=== PATIENT | male | born 1950 | race Caucasian/White ===

== ENCOUNTER 2023-08-03 06:34 | Day surgery (SDC) | payer OTHER, SELFPAY ==
[2023-07-28 11:51] VITALS: BMI 24.4
[2023-08-03] VITALS (12 sets, daily range): BP systolic 111–177; BP diastolic 58–95; PULSE 61–80; RESP 12–17; TEMP 36.1–36.7; O2SAT 97–100; BMI 24.3
--- NOTE | 2023-08-03 06:33 | DI.RAD.S_ITS ---
PROCEDURE: XR HIP W PEL IF DONE RT 2V INDICATIONS: right DANNY, anterior TECHNIQUE: 1 view(s) of the hip acquired. COMPARISON: [facility], JORDYN, XR HIP W PEL IF DONE RT 2V, 08/03/2023, 10:46. FINDINGS: Bones: Patient is status post right hip arthroplasty, with hardware components in expected positions. The hip joint appears congruent. The visualized bony structures appear intact. Soft tissues: Overlying postoperative changes are noted. No suspicious soft tissue densities. IMPRESSION: Intraoperative visualization of right hip arthroplasty. Dictated by: Shruthi Thrasher M.D. on 08/03/2023 at 12:22 Approved by: Shruthi Thrasher M.D. on 08/03/2023 at 12:22
[2023-08-03] MEDS: LACTATED RINGERS 1,000 ML 42 ML IV ×2 (06:56→09:40)
[2023-08-03] MEDS: VANCOMYCIN 1,000 MG/200 ML PIGGYBACK 200 MG IV (06:57)
[2023-08-03] MEDS: ACETAMINOPHEN 325 MG TABLET 975 MG PO (07:10)
--- NOTE | 2023-08-03 07:19 | SUR.OPER ---
Supine on padded Julian table with bilateral legs secured in padded positioning boots and suspended in positioning spars, operative leg in traction per surgeon. Head on one pillow. Arm on non-operative side secured on padded armboard <90 degrees abduction. Arm on operative side padded and resting across chest then secured with tape over sheet. Padded perineal post in place per surgeon.
--- NOTE | 2023-08-03 07:37 | PM.PREOP ---
Pre-operative Note Interval Note History & Physical reviewed/Exam performed by Physician: Yes Changes to H&P: No
--- NOTE | 2023-08-03 07:38 | PM.OP.1 ---
Operative Date/Time/Diagnoses Date of procedure: 08/03/23 Time of procedure: 08:00 Pre-op diagnosis: right hip OA Post-op diagnosis: same Procedure & Clinicians Procedure: Right total hip arthroplasty anterior approach Same procedure as scheduled: Yes Indications: The patient has had progressively worsening right hip pain with radiographic changes consistent with arthritis. Non-operative management has failed and the patient has requested total hip replacement. The risks, benefits and alternatives to surgery were discussed with the patient prior to proceeding. Risks discussed included, but were not limited to, failure to relieve pain, leg length discrepancy, dislocation, stiffness, infection, nerve damage, deep venous thrombosis, pulmonary embolism, stroke, coma, heart attack, permanent paralysis and , as well as the potential need for eventual revision of the prosthetic. Surgeon: Jannette Tong Collar Pointer: Jan Burgos Anesthesia Type: General Operative Notes Findings: Severe right hip osteoarthritis, adequate bone, adequate stability Closure Type: primary Specimen(s): none sent Prosthetic devices, grafts, tissues, transplants, or devices: Tong and nephew R3 size 54, neutral poly liner, one 6.5 mm screw, polar stem size 4 with collar, 36+ 0 Oxinium head Estimated Blood Loss (mL): 250 Blood products transfused: none Procedure in detail: The patient was brought to the operating room. Patient was carefully positioned in the supine position. Time-out was performed and antibiotics were given. Anesthesia was induced. He was positioned in the on the table in order to allow hyperextension of the hip. The right lower extremity was prepped and draped in a standard sterile fashion. An anterior right hip incision was made 1 fingerbreadth lateral to the anterior superior iliac spine and extended distally towards the greater trochanter. Dissection was carried out through skin and subcutaneous tissues. Superficial hemostasis was achieved. The fascia over the tensor fascia aime was defined and incised with a knife. Two Allis clamps were used to grasp the fascia. Tensor fascia aime was retracted laterally. A gelpi retractor was placed. Dissection was carried out down along the neck. The circumflex vessels were carefully identified and cauterized with the Aqua Mantis. A PA was used during the procedure and was essential for retraction and safe implantation of the components as well as assisting with establishing adequate hemostasis. There was good visualization of the femoral neck. A Cobra was placed superior to the neck and the gluteus fibers were carefully stripped from that superior aspect of the capsule. A 2nd retractor was placed along the inferior aspect of the neck. The rectus insertion along the capsule was partially released. A 3rd retractor that was then gently placed over the rim of the acetabulum under the rectus. Capsule was carefully incised and released from the intertrochanteric line circumferentially superior to the mid sagittal line and inferiorly to the mid sagittal line until the lesser trochanter was palpable. A tag stitch was placed both in the superior and inferior limb of the capsular insertion. Along the acetabulum capsule was also released up to the mid sagittal 12:00 position. A portion of the labrum was resected. A saw was used to perform an osteotomy at the level of the intertrochanteric line and the junction of the superior femoral neck leaving approximately 1 finger breath of residual inferior neck above the lesser trochanter. A 2nd cut was made along the femoral neck at the base of the head and a napkin ring of neck was removed. Corkscrew was placed in the femoral head and the head was removed without difficulty. Retractors were then repositioned around the acetabulum. Residual labrum was resected and additional osteophytes were removed. A reamer that was 4 mm below the templated size was placed by hand in the acetabulum and it was reamed to centralize the acetabulum. It was then reamed up to 2 under the templated size and fluoroscopy was brought in to confirm the position of the reaming and depth of reaming. I reamed 1 under the anticipated size. A trial cup was placed and noted that it was appropriately sized and fluoroscopy confirmed position and depth. The component was open and inserted without difficulty fluoroscopic imaging was used to confirm that the cup had been adequately seated and was well positioned. It was further stabilized with a single screw. Neutral poly liner was placed. The cup was tested and noted to be stable. Attention was then directed to the femur. The femur was gently hyperextended additional capsular release was performed as needed in order to allow adequate visualization of the proximal femur with elevation of the femur. Patient was placed in a hyperextended slightly adducted position with maximum external rotation. Box osteotome was used to check for any residual neck as well as sclerotic bone along the trochanter. [place] pepper was placed in the femur. Additional broaching was performed. Canal finder was used to determine the alignment of the canal and position. Size 1 broach was placed. The canal was then appropriately broached up to the templated size as long as there was adequate stability of the broach and serial advancement of the broach without excessive impingement. Specific attention was directed at avoiding varus attempting to direct the distal aspect of the broach more anteriorly and avoiding excessive anteversion. Trial reduction showed acceptable range of motion, good stability, no posterior impingement, rastafarian of leg length and appropriate lateral shuck. I also hyperflexed the hip and checked that there was no impingement anteriorly and there was good stability with flexion, adduction and internal rotation. Marcaine and Exparel were injected. The stem was placed without difficulty. Repeat trial reduction and x-ray showed acceptable overall position, length, and no evidence of the femoral fracture. Final head was placed. Wound was meticulously irrigated with normal saline. The hip was reduced and additional Exparel and Marcaine were injected. The capsule was closed with interrupted nonabsorbable sutures. The fascia of the tensor was closed with interrupted and running Vicryl. No drain was placed. Any tensor fascia aime muscle that appeared to be contused or injured which was a minimal amount was carefully resected. Capsule around the tensor was injected with Exparel and Marcaine. The skin was closed with barbed stitches for the subcutaneous tissue and skin. We also used surgical glue. The wound was dressed sterilely. Brief Betadine soak was also used and was meticulously irrigated with normal saline. Patient was transferred to recovery room in satisfactory condition. Complications: none Post-operative Condition: stable Disposition: Acute Care Plan for aftercare: The patient will be maintained on a standard total hip replacement protocol with weight bearing as tolerated and anterior hip precautions. The patient will receive Coumadin and sequential compression devices for DVT prophylaxis. The patient will be discharged home when safe for the home environment.
[2023-08-03] MEDS: CEFAZOLIN 2 GM/100 ML PREMIX 100 ML IV ×3 (08:05→23:46)
[2023-08-03] MEDS: BUPIVACAINE 0.25% (PF) 60 ML, EPINEPHrine 0.3 MG INJ (08:40)
--- NOTE | 2023-08-03 09:06 | PM.AN.REGBLK ---
Regional Block Pre-procedure Labs: INR in pre-op this AM 1.1 Medications: Current Medications Generic Name Dose Route Start Last Admin Trade Name Pedroq PRN Reason Stop Dose Admin Acetaminophen 975 mg 07/29/23 14:08 Acetaminophen 325 Mg Tablet PO NOW PRN Pain, Moderate (4-6) Lactated Ringer's 1,000 mls @ 42 mls/hr 07/29/23 14:15 08/03/23 06:56 Lactated Ringers IV 42 mls/hr CONT LUIS Administration Lactated Ringer's 1,000 mls @ 42 mls/hr 08/03/23 06:45 08/03/23 07:11 Lactated Ringers IV Not Given CONT LUIS Pt held warfarin x 5 days. Lovenox 30mg SQ yesterday at 1800. Allergies: Allergies Allergy/AdvReac Type Severity Reaction Status Date / Time No Known Drug Allergies Allergy Verified 08/03/23 06:49 Procedure Insertion date: 08/03/23 Insertion time: 08:10 Prep/Local: 1% lidocaine (2CC) Interspace: L3-L4 Patient position: sitting
[2023-08-03] MEDS: BUPIVACAINE LIPOSOME 266 MG/20 ML VIAL INJ (10:21)
--- NOTE | 2023-08-03 11:00 | DI.RAD.S_ITS ---
PROCEDURE: XR HIP W PEL IF DONE RT 2V INDICATIONS: RIGHT ANTERIOR HIP POST OP TECHNIQUE: AP pelvis and lateral view of the right hip acquired. COMPARISON: [facility], JORDYN, XR HIP W PEL IF DONE RT 2V, 08/03/2023, 9:24. FINDINGS: Bones: Patient is status post right hip arthroplasty, with hardware components in expected positions. The hip joint appears congruent. The visualized bony structures appear intact. Soft tissues: Overlying postoperative changes are noted. No suspicious soft tissue densities. IMPRESSION: Postop changes from right total hip arthroplasty with anatomic right hip alignment. Dictated by: Joey May M.D. on 08/03/2023 at 13:34 Approved by: Joey May M.D. on 08/03/2023 at 13:35
[2023-08-03] MEDS: ACETAMINOPHEN 325 MG TABLET 650 MG PO ×3 (11:45→23:46)
[2023-08-03] MEDS: LACTATED RINGERS 1,000 ML 100 ML IV (11:47)
[2023-08-03] MEDS: OXYCODONE IR 10 MG TABLET PO ×2 (16:02→19:48)
--- NOTE | 2023-08-03 16:06 | OT.IP.EVAL ---
Current Diagnoses Unilateral primary osteoarthritis, right hip (08/03/23) Surgery Performed Operation Date: 08/03/23 07:45 Actual Procedures p Total Hip Arthroplasty/Anterior Approach(Right) - Jannette Tong MD Past Medical History (Last Updated 07/28/23 @ 12:08 by Naeem Valles, ANABELA) Chronic anticoagulation DJD (degenerative joint disease) History of arthritis History of atrial fibrillation History of depression History of DVT of lower extremity (~02/2007) History of factor V Leiden mutation History of osteoarthritis History of spinal stenosis HTN (hypertension) Hyperlipidemia Surgical History (Last Updated 07/28/23 @ 12:13 by Naeem Valles RN) H/O arthroscopy of shoulder History of arthroscopy of knee History of hernia repair Hx of colostomy Hx of surgical procedure Occupational Therapy Inpatient Evaluation/Re-Eval M1 PT/OT-IP Prior Functional Status Start: 08/03/23 16:08 Freq: NEEDED Status: Active Protocol: Document 08/03/23 15:35 [facility] (Rec: 08/03/23 16:44 [facility] [id number]) Medical Review Prior Functional Status Medical History Reviewed Yes Communication Independent, pt states has difficulty getting words out when tired. Mobility and Gait Pt did not use a device and able to go to the gym and work out for 2 hours. Activities of Daily Living and IADL's Independent. Social History Household Members spouse Living Arrangements House Number of Floors (Floors) Two Floors Number of Stairs To Enter/Railing? 3steps with no rails Home Environment High Toilet,Walk in Shower Home Equipment Front Wheel Walker,Straight Cane,Hand Held Shower,Grab Bars Near Toilet,Grab Bars In Shower Additional Social History Comment Pt has a built in seat for the shower and questionable if the walker is able to fit into the shower. M2 OT-IP Current Condition Start: 08/03/23 16:08 Freq: Status: Active Protocol: Document 08/03/23 15:35 [facility] (Rec: 08/03/23 16:44 [facility] [id number]) Occupational Therapy Current Condition Current Condition Evaluation Date 08/03/23 Treatment Diagnosis S/p RTHA s/p Anterior approach Diagnosis Onset Date 08/03/23 Post Operative Precautions Anterior Hip Precautions No Hip Extension,No Hip External Rotation M3 OT- IP Subjective and Pain Start: 08/03/23 16:08 Freq: Status: Active Protocol: Document 08/03/23 15:35 [facility] (Rec: 08/03/23 16:44 [facility] [id number]) OT- Subjective Occupational Therapy Visit Type Type Initial Evaluation Visit Start Time 13:40 Visit Stop Time 16:06 Total Visit Minutes 55 Notes Pt seen from [id number] and [id number]. Occupational Therapy Visit Comments Patient Comments Pt agreed to get up and initially seen to go over information as pt not able to move his RLE at the time yet after surgery. Patient/Caregiver Goals To go home. OT Pain Assessment Pain When Pain Assessed At Rest Pain Present Pain Present Pain Reported Location Right Hip Intensity 5 Scale Used Numeric (0 - 10) M4 OT- IP ADL's Start: 08/03/23 16:08 Freq: Status: Active Protocol: Document 08/03/23 15:35 [facility] (Rec: 08/03/23 16:44 [facility] [id number]) OT [id number] Comments OT Self-Feeding Comments Not at meal time. OT ADL-Grooming Comments OT Grooming Comments Not performed. OT ADL-Oral Care Comments Oral Care Comments NOt performed. OT ADL-Dressing General Eval Lower Body Dressing Ability Maximum Assistance Areas Needing Assistance Underpants/Brief,Socks Comments OT Dressing Comments Educated to carlito his RLE first and take out last. 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 Pt states his to assist. Emphasized pt not to externally rotate his RLE out for any dressing needs and better to have assist to prop his right foot on a stool to get dressed and use of LB dressing equipment as needed. OT ADL-Toileting General Evaluation Toileting Ability Standby Assistance Comments OT Toileting Comments Pt able to stand with CGA to FWW while able to use the urinal. Pt gets up 7-8 times to use the bathroom due to prostate issues. OT ADL-Bathing Comments OT Bathing Comments Not at this time. Pt's to see if able to get the FWW in the walk in shower. M5 OT- IP IADL's Start: 08/03/23 16:08 Freq: Status: Active Protocol: Document 08/03/23 15:35 [facility] (Rec: 08/03/23 16:44 [facility] [id number]) OT-Instrumental Activities of Daily Living Home Safety Awareness Home Safety Comments Pt a little groggy and will have his to assist him at home. Pt's also needing education for pt's needs and precautions. Meal Preparation Meal Preparation Caregiver Provides Assist Equip Maint Eng Equip Maint Eng Caregiver Provides Assist M6 OT- IP Functional Cognition Start: 08/03/23 16:08 Freq: Status: Active Protocol: Document 08/03/23 15:35 [facility] (Rec: 08/03/23 16:44 [facility] [id number]) Cognitive Factors Limiting Selfcare Function Cognitive Ability Level of Alertness Drowsy Patient Orientation Name,Place,Situation Attention Span Ability Capable of Focused Attention, Capable of Sustained Attention Ability to Follow Commands Able to Follow One Step Commands with Increased Time, Able to Follow One Step Commands with Repetition Safety Awareness Decreased Ability to Apply Precautions Cognitive Comments Cognitive Assessment Comments Pt a little groggy and forgetful and needing reminders to incorporate his precautions during mobility and ADL needs. Pt's feels that pt is at his baseline for cognitive needs, continue to assess. OT- Vision and Hearing OT- Vision Assessment Visual Acuity WFL Vision Assessment Comments Pt states his left eye is watery but states does so at home at times. M7 OT- IP Mobility and Balance Start: 08/03/23 16:08 Freq: Status: Active Protocol: Document 08/03/23 15:35 [facility] (Rec: 08/03/23 16:44 [facility] [id number]) OT- Bed Mobility Assessment Supine to Sit Supine to Sit Assist Standby Assistance Scooting Scooting to Edge of Bed Standby Assistance OT-Transfer Assessment Sit to and From Stand Sit to and from Stand Contact Guard Assistance Comments Mobility Comments SBA and able to keep his legs together while getting to the edge of the bed. Pt needing vc to push up from the bed to stand to the FWW. CGA for balance. Pt able to take a few steps with the FWW but needing cues to follow his hip precautions. OT- Balance Assessment Sitting Balance and Reactions Static Sitting Balance Ability Good Dynamic Sitting Balance Ability Good Standing Balance and Reactions Static Standing Balance Ability Fair Dynamic Standing Balance Ability Fair M9 OT- IP Assessment and Plan Start: 08/03/23 16:08 Freq: Status: Active Protocol: Document 08/03/23 15:35 [facility] (Rec: 08/03/23 16:44 [facility] [id number]) OT Summary Assessment and Plan Potential Rehabilitation Potential Good Analytic Complexity at Evaluation Low Summary OT Impairments Pain,Balance,Functional Mobility,Dressing,Toileting, Bathing,Toilet Transfers, Shower Transfers Progress Towards Goals Progressing Toward Goals Assessment Summary Pt low complexity and main barriers are pain, needing cues to follow and incorporate his hip precautions, and has 3 steps with no rail at home. Pt has a supportive , however she would benefit from more training and education regarding his hip precautions for ADl and mobility needs. Pt to go home with assist when medically stable. Goals Grooming Goal Independent Dressing Goal Minimal Assistance Toileting Goal Independent Bathing Goal Minimal Assistance Toilet Transfer Goal Independent Shower Transfer Goal Standby Assistance Days to Meet Goals 5 Frequency of Treatment Frequency Of Treatment Once a Day Treatment Plan OT Treatment Plan ADL Training,Functional Mobility,Patient/Family Education,Discharge Planning Discharge Recommendations OT Discharge Recommendations Home with Assistance Transportation Needs at Discharge Private Vehicle
[2023-08-03] MEDS: WARFARIN 5 MG TABLET PO (17:15)
--- NOTE | 2023-08-03 18:57 | PC.NURSE ---
Pt arrived from PACU this a.m. prior to lunch VSS, afebrile on RA. Initially reports heavy sensation to RLE, tightness to muscles in R hip 04/07. RLE weak initially after spinal block and OT at bedside returns later to discuss hip precautions and assess patient. Aquacel c/d/i. He tolerates meals well. LR at 100ml/hr. at bedside supportive. This evening at 1830 after MD at bedside encouraging pt to sit in chair. Pt gets up with RN to go to the BR and has a hypotensive episode. He is assisted back to bed, and SBP returns to 116/95, and patient recovers back to baseline. MD notified, continuous monitoring.
[2023-08-03] MEDS: DOCUSATE 100 MG CAPSULE PO (20:06)
[2023-08-03] MEDS: ATORVASTATIN 20 MG TABLET 10 MG PO (20:06)
[2023-08-04 00:05] VITALS: BP 121/63; PULSE 77; RESP 16; TEMP 36.3; O2SAT 99
[2023-08-04] MEDS: LACTATED RINGERS 1,000 ML 100 ML IV ×2 (00:59→10:46)
--- NOTE | 2023-08-04 02:16 | PC.NURSE ---
Patient is alert and oriented. Breath sounds CTA with RA sat of 100%; placed on continuous oximetry per MD order. HRR; did have episode prior to shift change where he became hypotensive when up to bathroom but at time of assessment BP was 111/58. Denies nausea. BT hypoactive and denies having passed flatus as yet. Is voiding per urinal and denies dysuria. Is able to move himself in bed. Due to hypotensive episode earlier will utilize walker + 2 assists when getting out of bed. Aquacel dressing to right anterior hip is CDI. Has good CMS except is unable to lift his right leg off the bed but is bending at the knee/hip. Is wearing bilateral calf SCD's. Reported no pain at rest but 10/10 pain with movement so was medicated with oxycodone at 1948 in addition to scheduled tylenol and has denied pain since that time. Fall risk score is high and bed alarm is activated.
[2023-08-04 04:25] VITALS: BP 125/65; PULSE 79; RESP 16; TEMP 36.5; O2SAT 99
[2023-08-04] MEDS: OXYCODONE IR 10 MG TABLET PO (05:55)
[2023-08-04] MEDS: ACETAMINOPHEN 325 MG TABLET 650 MG PO ×2 (05:55→12:34)
[2023-08-04 06:38] LABS: Prothrombin Time 11.9 SECONDS (10.1-12.7)
[2023-08-04 06:40] LABS: Hematocrit 34.4 % (41-53); Hemoglobin 11.4 g/dL (13.5-17.5)
[2023-08-04 08:00] VITALS: BP 142/75; PULSE 82; RESP 16; TEMP 35.9; O2SAT 98
--- NOTE | 2023-08-04 08:17 | PM.DS.1 ---
History of Present Illness History of Present Illness Date Patient Seen: 08/04/23 Time Patient Seen: 08:00 Chief complaint: R DANNY anterior Narrative: Patient is sitting up comfortably at the edge of bed eating breakfast this morning. He states everything is going well. Has little pain, well controlled with medication. He notes that PT went well yesterday and he is eager to go home. Denies chest pain, shortness of breath. Discharge Providers Provider Discharge Date: 08/04/23 Consults: 08/03/23 06:33 Consult to Anesthesiology Routine Comment: Consulting Provider: Anesthesiologist Reason for consultation: Regional block for post operative pain control 08/03/23 11:38 Consult to Discharge Planning Routine Comment: Consult to Occupational Therapy Evaluate & Treat Comment: Physician Instructions: Evaluate and treat Consult to Physical Therapy Evaluate & Treat Comment: Physician Instructions: post op DANNY protocol Discharge provider: Teresa Concepcion PA-C Summary Hospital Course Discharge Diagnosis: s/p R DANNY anterior Hospital Course: Operative Date/Time/Diagnoses Date of procedure: 08/03/23 Time of procedure: 08:00 Pre-op diagnosis: right hip OA Post-op diagnosis: same Procedure & Clinicians Procedure: Right total hip arthroplasty anterior approach Same procedure as scheduled: Yes Indications: The patient has had progressively worsening right hip pain with radiographic changes consistent with arthritis. Non-operative management has failed and the patient has requested total hip replacement. The risks, benefits and alternatives to surgery were discussed with the patient prior to proceeding. Risks discussed included, but were not limited to, failure to relieve pain, leg length discrepancy, dislocation, stiffness, infection, nerve damage, deep venous thrombosis, pulmonary embolism, stroke, coma, heart attack, permanent paralysis and , as well as the potential need for eventual revision of the prosthetic. Surgeon: Jannette Tong Business Development Professional: Jan Burgos Anesthesia Type: General Operative Notes Findings: Severe right hip osteoarthritis, adequate bone, adequate stability Closure Type: primary Specimen(s): none sent Prosthetic devices, grafts, tissues, transplants, or devices: Tong and nephew R3 size 54, neutral poly liner, one 6.5 mm screw, polar stem size 4 with collar, 36+ 0 Oxinium head Estimated Blood Loss (mL): 250 Blood products transfused: none Status at Discharge Cognitive/behavioral status at discharge: oriented Functional status at discharge: uses cane/walker Overall status at discharge: patient is progressing back to baseline Exam Vital Signs (past 8 hours): - 08/04/23 04:25 Temperature 97.7 F Pulse Rate 79 Respiratory Rate 16 Blood Pressure 125/65 Pulse Oximetry 99 Oxygen Flow Rate 0 Oxygen Delivery Method Room Air Oxygen Flow Rate 0 Narrative Exam Narrative: Pleasant 72 year old male. Awake, alert, and oriented. Right anterior hip bandage CDI. Strength and sensation intact to bilateral lower extremities. Objective Labs 08/04/23 06:05 Labs: Laboratory Results - last 24 hr 08/04/23 08/04/23 06:05 06:05 Hgb 11.4 L Hct 34.4 L PT 11.9 INR 1.0 PFSH Medical History (Updated 07/28/23 @ 12:08 by Naeem Valles RN) Chronic anticoagulation DJD (degenerative joint disease) History of arthritis History of atrial fibrillation History of depression History of DVT of lower extremity (~02/2007) History of factor V Leiden mutation History of osteoarthritis History of spinal stenosis HTN (hypertension) Hyperlipidemia Surgical History (Updated 07/28/23 @ 12:13 by Naeem Valles RN) H/O arthroscopy of shoulder History of arthroscopy of knee History of hernia repair Hx of colostomy Hx of surgical procedure Social History household members: spouse Smoking Status: Never smoker alcohol intake: never Discharge Assessment & Plan Assessment and Plan Assessment: Patient is progressing well following right anterior total hip arthroplasty. Plan of Treatment: Continue outpatient PT. Multimodal pain medication as prescribed. Ice to hip as needed. Continue warfarin. Follow up with orthopedics in 2 weeks. Discharge Plan Discharge Plan Patient Disposition: Home Discharge orders & Medications Discharge Orders: Discharge (Order); Ordered 08/04/23 Ordered By: Teresa Concepcion Prescriptions: New acetaminophen 325 mg Tablet 650 mg PO Q6H Qty: 30 0RF Continued atorvastatin 10 mg tablet 10 mg PO DAILY warfarin 5 mg Tablet 5 mg PO DAILY lisinopril-hydrochlorothiazide 10-12.5 mg tablet 1 tab PO DAILY oxycodone 5 mg Tablet 5 mg PO Q4H PRN (Reason: pain) Patient Comments: post op medication duloxetine 60 mg capsule,delayed release(DR/EC) 60 mg PO DAILY enoxaparin 30 mg/0.3 mL syringe 30 mg SUBCUT BID Follow up/Referrals: Jannette Tong MD [Physician] - As previously scheduled (Follow up w/ Toshia Concepcion PA-C, on 08/17/2023 @ 3:30 pm at [facility] office in [place].) Diet/Activity/Treatments Diet: Diet as Tolerated Activity: Weightbearing as tolerated to right leg. Anterior hip precautions. Cold/Heat Therapy: Ice to hip as needed for pain. Other treatments: Patient will be restarted on warfarin 08/03/2023 and will start his 1st Lovenox dose tomorrow August 04, 2023 evening. He will take his 2 doses of Lovenox on August 05, 2023 have his INR checked it should be therapeutic bilateral time. Skin/Wound/Dressing Care Report to your healthcare provider any signs of infection, such as:: chills, fever, night sweats, unusual drainage and unusual redness Dressing: May shower. Leave Aquacel dressing in place until follow up in office. No bathing or otherwise soaking incision. Call the office if the dressing becomes saturated inside. Visit Report/Discharge Packet Instructions: DI for Hip Replacement Stand Alone Forms: Patient Portal/API, Surgery Discharge Discharge Data Attending Provider: Jannette Tong
--- NOTE | 2023-08-04 09:40 | PT.IIE ---
Current Diagnoses Unilateral primary osteoarthritis, right hip (08/03/23) Surgery Performed Operation Date: 08/03/23 07:45 Actual Procedures p Total Hip Arthroplasty/Anterior Approach(Right) - Jannette Tong MD Surgical History (Last Updated 07/28/23 @ 12:13 by Naeem Valles, RN) H/O arthroscopy of shoulder History of arthroscopy of knee History of hernia repair Hx of colostomy Hx of surgical procedure Medical History (Last Updated 07/28/23 @ 12:08 by Naeem Valles RN) Chronic anticoagulation DJD (degenerative joint disease) History of arthritis History of atrial fibrillation History of depression History of DVT of lower extremity (~02/2007) History of factor V Leiden mutation History of osteoarthritis History of spinal stenosis HTN (hypertension) Hyperlipidemia Physical Therapy Inpatient Evaluation/Re-Eval M1 PT/OT-IP Prior Functional Status Start: 08/03/23 16:08 Freq: NEEDED Status: Active Protocol: Document 08/04/23 09:40 DLM (Rec: 08/04/23 12:47 DL [id number]) Medical Review Prior Functional Status Medical History Reviewed Yes Diet/Fluid Consistency Regular Communication Independent, pt states has difficulty getting words out when tired. Mobility and Gait Pt did not use a device and able to go to the gym and work out for 2 hours. He is active in the community. He likes to play pickle ball. Activities of Daily Living and IADL's Independent. Social History Household Members spouse Living Arrangements House Number of Floors (Floors) Two Floors Number of Stairs To Enter/Railing? 3 without rail Home Environment High Toilet,Walk in Shower, Built-In Shower Seat Home Equipment Front Wheel Walker,Straight Cane,Hand Held Shower,Grab Bars Near Toilet,Grab Bars In Shower Employment Status Retired Additional Social History Comment pt plans to stay on main level of house M2 PT-IP Current Condition Start: 08/04/23 11:49 Freq: NEEDED Status: Active Protocol: Document 08/04/23 09:40 DLM (Rec: 08/04/23 12:47 DLM [id number]) Physical Therapy Current Condition Current Condition Evaluation Date 08/04/23 Treatment Diagnosis right anterior DANNY, impaired gait Onset Date 08/03/23 M3 PT-IP Subjective Start: 08/04/23 11:49 Freq: NEEDED Status: Active Protocol: Document 08/04/23 09:40 DLM (Rec: 08/04/23 12:47 DLM [id number]) Subjective Physical Therapy Visit Type Type Initial Evaluation Visit Start Time 08:55 Visit Stop Time 09:40 Total Visit Minutes 45 Number of CHEMICAL UNIT OPERATOR Visits 0 Physical Therapy Visit Comments Patient Comments He reports he got really light -headed when up with nursing and they had to help him to prevent a fall. He recalls getting hot and sweaty while light-headed. Patient Goals discharge home Therapy Pain Assessment Pain When Pain Assessed During Mobility Pain Present Pain Present Pain Reported Location Right Hip Intensity 3 Scale Used Numeric (0 - 10) Description Aching,Tender,With Movement Pain Behaviors Guarding Pain Management Techniques Re-positioning,Timing of Activity with Medications M4 PT-IP Mobility and Gait Start: 08/04/23 11:49 Freq: NEEDED Status: Active Protocol: Document 08/04/23 09:40 DL (Rec: 08/04/23 12:47 DL [id number]) PT-Bed Mobility Assessment Supine to Sit Supine to Sit Minimal Assistance Sit to Supine Sit to Supine Minimal Assistance Scooting Scooting to Edge of Bed Independent Scooting Up and Down in Bed Independent PT-Transfer Assessment Sit to and From Stand Sit to and from Stand Standby Assistance,Use of Upper Extremities Equipment Transfer Assistive Device Gait Belt,Front Wheeled Walker Transfers Transfer Destination Bed,Chair Transfer Technique Stand Step Pivot Transfer Ability Level of Assist Contact Guard Assistance,Use of Upper Extremities Comments Mobility Comments he needs assist for right LE when getting in/out of bed he needs verbal cues for safe use of UE support during sit- stand He needs repetition of information and movements to learn new safe movement patterns Gait Assessment Comments Gait Comments Pt unable to advance to functional gait due to light- headedness when up with orthostatic hypotension. Pt up to recliner this visit. Vital signs: sitting edge of bed BP 106/73 HR 96 standing edge of bed BP 90/47, HR 107 (pt light-headed and sweating) sitting edge of bed after standing BP 94/57, HR 89 supine BP 125/66, HR 74 Sitting up in recliner after therapy activity BP 135/68 HR 83 Stair Climbing Assessment Comments Stair Climbing Comments unable to advance to stair training this visit due to orthostatic hypotension with light-headedness PT-Balance Assessment Sitting Balance and Reactions Static Sitting Balance Ability Normal Dynamic Sitting Balance Ability Normal Standing Balance and Reactions Static Standing Balance Ability Good Dynamic Standing Balance Ability Good Device Used FWW M5 PT-IP Objective Assessments Start: 08/04/23 11:49 Freq: NEEDED Status: Active Protocol: Document 08/04/23 09:40 DLM (Rec: 08/04/23 12:47 DL [id number]) Orientation Orientation/Cognition Level of Alertness Alert Orientation Name,Age,Birthday,Month,Date, Year,Day of Week,Place, Situation Language Function Ability No Deficits Noted Safety Awareness Understands Safety Issues Memory Description No Deficits Noted Comments mildly impulsive, needs repetition of new information Gross Range of Motion Upper Extremity ROM Assessment Within Functional Limits Lower Extremity ROM Assessment Right Impaired Impairments post-op pain and precautions in hip Strength Upper Extremity Strength Assessment Within Functional Limits Lower Extremity Strength Assessment Right Impaired Hip needs assist to move LE in bed and for heel slide Knee ext at least 3+/5 with quad pain Ankle DF 5/5 Coordination Assessment Gross Coordination Gross Coordination WNL Sensation Assessment Sensation Gross Sensation WNL Muscle Tone Muscle Tone WNL Yes M6 PT-IP Treatment Start: 08/04/23 11:49 Freq: NEEDED Status: Active Protocol: Document 08/04/23 09:40 DLM (Rec: 08/04/23 12:47 DL [id number]) Physical Therapy Treatment Exercises Exercises Ankle Pumps,Gluteal Sets,Quad Sets,Heel Slides Education Education Provided Precautions,Weight Bearing Status,Post-Op Packet,Safety Other Treatments Other Treatment Performed Pt able to complete his exercises in supine with assist for heel slides. His arrived during this visit and participated in education and training. She reports she does better with written materials for learning so she took notes as needed this visit. Pt needs repetition of new information and verbal sequencing M7 PT-IP Assessment and Plan Start: 08/04/23 11:49 Freq: NEEDED Status: Active Protocol: Document 08/04/23 09:40 DLM (Rec: 08/04/23 12:47 DL [id number]) PT Summary Assessment and Plan Potential Rehabilitation Potential Excellent Status of Condition at Evaluation Evolving Summary Impairments Pain,ROM,Strength,Balance,Bed Mobility,Transfers,Gait, Activity Tolerance Progress Towards Goals Slow Progress due to Medical Issues Assessment Summary Onur is post-op day one right anterior DANNY. He is sitting up on the edge of the bed at the start of this visit. He report he got very light- headed getting up with nursing yesterday. Pt needs safety cues during mobility to manage his pain and decrease his fall risk. His vital signs are positive for orthostatic hypotension this visit with pt getting light-headed and sweaty in standing. He was able to slowly progress to up to recliner with his BP stable . He was not able to progress to functional gait this visit. He needs to do stair training before going home. Will plan to see this afternoon. Goals Bed Mobility Goal Independent Transfer Goal Independent,Front Wheeled Walker Gait Goal Independent,Front Wheel Walker Gait Distance 150 feet Other Goals up/down 3 steps without rail with cane and CG/min assist Days to Meet Goals 2 Frequency of Treatment Frequency Of Treatment Twice a Day Treatment Plan Physical Therapy Treatment Plan Bed Mobility Training,Transfer Training,Gait Training, Therapeutic Exercise,Balance Retraining,Post Op Education, Discharge Planning,Hot or Cold Pack,Neuromuscular Re-ed Other Recommendations and Next Treatment monitor orthostatic Focus hypotension during activity Precautions Anterior Hip Precautions No Hip Extension,No Hip External Rotation Other Precautions fall risk, orthostatic hypotension Weight Bearing Status Weight Bearing Status Weight Bear as Tolerated Allowed Weight Bearing Amount (enter % right LE with FWW or #) (%) Recommendations To Nursing Amount of Assist Needed 1 Person Assist Discharge Recommendations PT Discharge Recommendations Home with Assistance, Outpatient PT Other Discharge Recommendations Not ready for home yet due to orthostatic hypotension when up moving He has a supportive to help at home. Pt reports having out-pt PT scheduled. Transportation Needs at Discharge Private Vehicle
[2023-08-04] MEDS: DULOXETINE 30 MG CAPSULE 60 MG PO (09:44)
[2023-08-04] MEDS: DOCUSATE 100 MG CAPSULE PO (09:44)
--- NOTE | 2023-08-04 11:59 | OT.IP.TRT ---
Current Diagnoses Unilateral primary osteoarthritis, right hip (08/03/23) Surgery Performed Operation Date: 08/03/23 07:45 Actual Procedures p Total Hip Arthroplasty/Anterior Approach(Right) - Jannette Tong MD Occupational Therapy Treatment Note M2 OT-IP Current Condition Start: 08/03/23 16:08 Freq: Status: Active Protocol: Document 08/03/23 15:35 [facility] (Rec: 08/03/23 16:44 [facility] [id number]) Occupational Therapy Current Condition Current Condition Evaluation Date 08/03/23 Treatment Diagnosis S/p RTHA s/p Anterior approach Diagnosis Onset Date 08/03/23 Post Operative Precautions Anterior Hip Precautions No Hip Extension,No Hip External Rotation M3 OT- IP Subjective and Pain Start: 08/03/23 16:08 Freq: Status: Active Protocol: Document 08/04/23 11:59 [facility] (Rec: 08/04/23 12:58 [facility] [id number]) OT- Subjective Occupational Therapy Visit Type Type Treatment Note Visit Start Time 11:40 Visit Stop Time 11:59 Total Visit Minutes 19 Occupational Therapy Visit Comments Patient Comments Pt agreed to get up. Patient/Caregiver Goals TO go home. OT Pain Assessment Pain When Pain Assessed At Rest Pain Present Pain Present Pain Reported M4 OT- IP ADL's Start: 08/03/23 16:08 Freq: Status: Active Protocol: Document 08/04/23 11:59 [facility] (Rec: 08/04/23 12:58 [facility] [id number]) OT ADL-Dressing Comments OT Dressing Comments Reiterated strategies for dressing needs of not to cross his RLE over. OT ADL-Toileting Comments OT Toileting Comments Pt not having to go at this time. OT ADL-Bathing Comments OT Bathing Comments Spoke again of not soaking the dressing and for his to assist him for showering needs . M5 OT- IP IADL's Start: 08/03/23 16:08 Freq: Status: Active Protocol: Document 08/03/23 15:35 [facility] (Rec: 08/03/23 16:44 [facility] [id number]) OT-Instrumental Activities of Daily Living Home Safety Awareness Home Safety Comments Pt a little groggy and will have his to assist him at home. Pt's also needing education for pt's needs and precautions. Meal Preparation Meal Preparation Caregiver Provides Assist Bar Gauger And Lubricator Tender Bar Gauger And Lubricator Tender Caregiver Provides Assist M7 OT- IP Mobility and Balance Start: 08/03/23 16:08 Freq: Status: Active Protocol: Document 08/04/23 11:59 [facility] (Rec: 08/04/23 12:58 [facility] [id number]) OT-Transfer Assessment Sit to and From Stand Sit to and from Stand Standby Assistance Devices Transfer Assistive Devices Gait Belt,Front Wheeled Walker Comments Mobility Comments Sitting BP 119/69, standing 91 /51, 92/53, 107/66,109,62, and back in sitting 132/62. Pt not symptomatic now as prior per PT session was orthostatic . OT- Balance Assessment Sitting Balance and Reactions Static Sitting Balance Ability Good Dynamic Sitting Balance Ability Good Standing Balance and Reactions Static Standing Balance Ability Good M9 OT- IP Assessment and Plan Start: 08/03/23 16:08 Freq: Status: Active Protocol: Document 08/04/23 11:59 [facility] (Rec: 08/04/23 12:58 [facility] [id number]) OT Summary Assessment and Plan Potential Rehabilitation Potential Good Analytic Complexity at Evaluation Low Summary OT Impairments Pain,Balance,Functional Mobility,Dressing,Toileting, Bathing,Toilet Transfers, Shower Transfers Progress Towards Goals Progressing Toward Goals Assessment Summary Pt this morning having orthostatic readings and able to see pt and BP doing better and not symptomatic now. Able to go over hip precautions for ADL needs with pt and . Pt to go home when medically stable and have outpt PT. Goals Grooming Goal Independent Dressing Goal Minimal Assistance Toileting Goal Independent Bathing Goal Minimal Assistance Toilet Transfer Goal Independent Shower Transfer Goal Standby Assistance Days to Meet Goals 3 Frequency of Treatment Frequency Of Treatment Once a Day Treatment Plan OT Treatment Plan ADL Training,Functional Mobility,Patient/Family Education,Discharge Planning Discharge Recommendations OT Discharge Recommendations Home with Assistance Transportation Needs at Discharge Private Vehicle
[2023-08-04 12:00] VITALS: BP 118/53; PULSE 89; RESP 16; TEMP 36.2; O2SAT 94
--- NOTE | 2023-08-04 14:15 | PT.IPTN ---
Current Diagnoses Unilateral primary osteoarthritis, right hip (08/03/23) Surgery Performed Operation Date: 08/03/23 07:45 Actual Procedures p Total Hip Arthroplasty/Anterior Approach(Right) - Jannette Tong MD Physical Therapy Treatment Note M2 PT-IP Current Condition Start: 08/04/23 11:49 Freq: NEEDED Status: Active Protocol: Document 08/04/23 09:40 DLM (Rec: 08/04/23 12:47 DLM [id number]) Physical Therapy Current Condition Current Condition Evaluation Date 08/04/23 Treatment Diagnosis right anterior DANNY, impaired gait Onset Date 08/03/23 M3 PT-IP Subjective Start: 08/04/23 11:49 Freq: NEEDED Status: Active Protocol: Document 08/04/23 14:54 TS (Rec: 08/04/23 15:12 TS [id number]) Subjective Physical Therapy Visit Type Type Treatment Note Visit Start Time 14:15 Visit Stop Time 14:53 Total Visit Minutes 38 Number of J2EE ARCHITECT Visits 1 Physical Therapy Visit Comments Patient Comments Pt found resting in chair, spouse in room, pt agreeable to PT. Therapy Pain Assessment Pain When Pain Assessed During Mobility Pain Present Pain Present Pain Reported Location Right Hip Intensity 3 Scale Used Numeric (0 - 10) Description Aching Pain Management Techniques Re-positioning,Timing of Activity with Medications M4 PT-IP Mobility and Gait Start: 08/04/23 11:49 Freq: NEEDED Status: Active Protocol: Document 08/04/23 14:54 TS (Rec: 08/04/23 15:12 TS [id number]) PT-Transfer Assessment Sit to and From Stand Sit to and from Stand Standby Assistance,Use of Upper Extremities Equipment Transfer Assistive Device Gait Belt,Front Wheeled Walker Comments Mobility Comments BP taken in sitting, BP unremarkable. Sit to stand from chair SBA with BUE support on FWW, pt has good balance in standing with no retroleaning. [facility] with step to gait, progressed to emerging step thru gait, denied any lightheadedness. He performed stairs x6 CGA ascending/descending with use of wall on R side and cane with LUE. Educated and instructed pt and spouse in sequencing of steps and proper handplacement on gait belt. Pt ambulated back to room, getting dressed and preparing for d/c. Gait Assessment Gait Gait Assistance Required: Standby Assistance Distance (Feet) 200 Able to Maintain Weight Bearing Status Yes During Gait Assistive Devices Assistive Device Gait Belt,Straight Cane Orthotic/Prosthetic Devices or Brace: No Gait Deviations General Gait Pattern Antalgic,Decreased Stride Length,Decreased Feet Clearance,Step-to Gait Factors Limiting Gait Function Factors Limiting Gait Function Decreased Activity Tolerance, Decreased Strength,Limited Range of Motion,Poor Balance Comments Gait Comments See mobility comments Stair Climbing Assessment Evaluation Level of Assist On Stairs Contact Guard Assistance,1 Person Assistance Devices Stair Climbing Assistive Devices Straight Cane,Right Railing Technique/Endurance Stair Climbing Direction Ascend and Descend Stair Climbing Technique Step to Step Number of Steps Climbed 6 Comments Stair Climbing Comments See mobility comments. PT-Balance Assessment Sitting Balance and Reactions Static Sitting Balance Ability Normal Dynamic Sitting Balance Ability Good Standing Balance and Reactions Static Standing Balance Ability Good Dynamic Standing Balance Ability Good Device Used FWW M5 PT-IP Objective Assessments Start: 08/04/23 11:49 Freq: NEEDED Status: Active Protocol: Document 08/04/23 09:40 DLM (Rec: 08/04/23 12:47 DLM [id number]) Orientation Orientation/Cognition Level of Alertness Alert Orientation Name,Age,Birthday,Month,Date, Year,Day of Week,Place, Situation Language Function Ability No Deficits Noted Safety Awareness Understands Safety Issues Memory Description No Deficits Noted Comments mildly impulsive, needs repetition of new information Gross Range of Motion Upper Extremity ROM Assessment Within Functional Limits Lower Extremity ROM Assessment Right Impaired Impairments post-op pain and precautions in hip Strength Upper Extremity Strength Assessment Within Functional Limits Lower Extremity Strength Assessment Right Impaired Hip needs assist to move LE in bed and for heel slide Knee ext at least 3+/5 with quad pain Ankle DF 5/5 Coordination Assessment Gross Coordination Gross Coordination WNL Sensation Assessment Sensation Gross Sensation WNL Muscle Tone Muscle Tone WNL Yes M6 PT-IP Treatment Start: 08/04/23 11:49 Freq: NEEDED Status: Active Protocol: Document 08/04/23 14:54 TS (Rec: 08/04/23 15:12 TS [id number]) Physical Therapy Treatment Education Education Provided Precautions,Weight Bearing Status,Post-Op Packet,Safety Other Treatments Other Treatment Performed Educated pt on the frequency and intensity of post-op ex. Pt recalled 2/2 hip precautions. M7 PT-IP Assessment and Plan Start: 08/04/23 11:49 Freq: NEEDED Status: Active Protocol: Document 08/04/23 14:54 TS (Rec: 08/04/23 15:12 TS [id number]) PT Summary Assessment and Plan Potential Rehabilitation Potential Excellent Summary Impairments Pain,ROM,Strength,Balance,Bed Mobility,Transfers,Gait, Activity Tolerance Progress Towards Goals Progressing Toward Goals Assessment Summary Pt is progressing well with his mobility this afternoon. He is SBA for sit to stand and gait ~200' w/FWW. He performed stairs x6 with spouse CGA. Education/ instruction was provided for step sequencing and proper use of cane and gait belt with steps. Pt emonstrated good safety awareness with his precautions and recalled 2/2 prior to mobility. He denied any dizziness or lightheadedness during mobility. PT is recommending return home w/assist and oupatient PT. Goals Bed Mobility Goal Independent Transfer Goal Independent,Front Wheeled Walker Gait Goal Independent,Front Wheel Walker Gait Distance 150 feet Other Goals up/down 3 steps without rail with cane and CG/min assist Days to Meet Goals 2 Frequency of Treatment Frequency Of Treatment Twice a Day Treatment Plan Physical Therapy Treatment Plan Bed Mobility Training,Transfer Training,Gait Training, Therapeutic Exercise,Balance Retraining,Post Op Education, Discharge Planning,Hot or Cold Pack,Neuromuscular Re-ed Other Recommendations and Next Treatment monitor orthostatic Focus hypotension during activity Precautions Anterior Hip Precautions No Hip Extension,No Hip External Rotation Other Precautions Falls risk Weight Bearing Status Weight Bearing Status Weight Bear as Tolerated Allowed Weight Bearing Amount (enter % right LE with FWW or #) (%) Recommendations To Nursing Amount of Assist Needed 1 Person Assist Discharge Recommendations PT Discharge Recommendations Home with Assistance, Outpatient PT Transportation Needs at Discharge Private Vehicle
--- NOTE | 2023-08-04 14:42 | CM.DANOTE ---
Addendum entered by NAS Sampson 08/04/23 15:31: ADD: Per [facility] [employer], pt did not have any bp issues with stairs or ambulation and safe for home. Per Rn, d/c instructions provided and pt taken to spouse POV and discharged home. BF Original Note: Patient is a 72 yo male who was admitted on 08/03/23 for RTHA. Pt has [facility] for insurance and his PCP is Rafa Merino. EMR was reviewed. Per Ortho PA, pt's pain is controlled and to work more with PT/OT today for likely discharge home if cleared by PT/OT. Per PT/OT, pt able to ambulate with therapies and completed CG training but having some bp/orthostatics today and will attempt stairs and ambulation this afternoon to confirm no bp issues. SW met bedside with pt and spouse and explained role and they confirm they live at home in [place] and pt is independent with ADLs at baseline and does not typically use DME for ambulation and still drives and works out at the gym regularly. Pt denies any hx of HH or SNF and states his spouse is his DPOA. Pt is established with outpt PT and they do not anticipate any needs at d/c as spouse can assist and transport and they just want to make sure pt's bp is stable. Plan: SW to follow closely for [employer] to complete stairs and ambulation with pt this afternoon to confirm if stable for d/c home with spouse assist tonight vs tomorrow pending orthostatics. NAS Sampson Discharge Planning/Care Management CM Discharge Assessment Start: 08/04/23 14:40 Freq: Status: Active Protocol: Document 08/04/23 14:40 BF (Rec: 08/04/23 14:42 [id number]) Discharge Planning Assessment Assigned Edi Architect NAS Terrazas DPOA/Assigned Designee Name spouse Linh Contact Information [phone] Advance Directives? Yes Advance Directives on File No History Provided By Patient,Significant Other, Medical Record Has Patient been admitted in last 30 No days? Prior Living Arrangements House Household Members spouse Type of transporation used prior to Drives own vehicle admit Independent with ADL's Yes Is patient alert and oriented? Yes Caregiver for Another No Community Services used prior to Physical Therapy admission: DME Already Rented / Owned Cane Patient/Family Preference OP PT Therapy Barriers to Discharge No Comment some orthostatics Discharge Plan Home Community Services Physical Therapy Transportation Arrangement Spouse bedside and will transport at d/c Referrals Initiated None needed Whiteboard Updated in Patient Room with Yes name and ext. # of Edi Architect Review Status In Process Please Provide Date Initial DC 08/04/23 Assessment Was Performed Next Review Type Continued Stay Review Pre-Anesthesia Assessment Start: 07/28/23 11:51 Freq: Status: Complete Protocol: Document 07/28/23 11:51 AK (Rec: 07/28/23 12:24 AK [id number]) Pre-Anesthesia Assessment Patient Information Reviewed Via Phone Assessment Assessment Completed With Patient,Spouse H&P Completed Within 30 Days 07/07/23 Diagnostic Results BMP/CMP,CBC,EKG,Urinalysis Comment labs/EKG 04/29/23 Primary Care Provider Christian Esquivel Seen Specialist in Last 12 Months Yes Specialist Seen Orthopedist Preferred Language Togolese Height 182.88 cm Weight 81.647 kg Body Mass Index (BMI) 24.4 Hearing Ability Normal Visual Impairment Partially Limited Visual Assist Glasses Dentition Type Teeth, Natural Present Barriers to Learning None Hx Anesthesia Reactions No Hx Family Anesthesia Reaction No Hx Malignant Hyperthermia No Hx Blood Transfusions No Hx Blood Transfusion Reaction No Anesthesia Review Requested No Self Sealing Fuel Tank Repairer No alcohol intake never Smoking Status Never smoker Substance Use Type does not use Pain Present Pain Reported Comment right hip pain Musculoskeletal Symptoms Joint Pain History of Falling (Recent or History of No ) Patient is completely paralyzed or No completely immobile Ambulatory Aid None/bed rest/nurse assist Gait/Transferring Normal/bedrest/immobile Mental Status Oriented to own ability Is patient on oxygen? No Does patient have FIELDS/SOB No Hx Sleep Apnea No Currently Taking a Beta Rubén No Can You Climb a Flight of Stairs Without Yes SOB Hx Chest Pain No Hx SOB No Hx Syncope or Dizziness No Anti-Coagulant Therapy Yes: Warfarin-stop 5 days prior to surgery/bridge with heparin Has a Automotive Buyer No Hx Pacemaker/ICD No Pacemaker Rep Required? No Diet Type At Home Regular Dysphagia No Bladder Pattern Retention Urinary Catheter Present No Hx Urinary Self Catheterization No Comment Hx of urolift Diabetes No: Pre-diabetic per patient HgbA1C 6.3 Date 04/29/23 Hx Drug Resistant Organism No Presence of External or Internal Medical Yes: urolift-metal tube Devices Have you had any close contact with No someone diagnosed with COVID-19? Are you experiencing any of these No symptoms symptoms? Marital Status Lives With spouse Current Living Arrangements House Number of Floors (Floors) Two Floors Number of Stairs To Enter/Railing? 3/none Support System Spouse Does the Patient Have Assistance After Yes Surgery Patient Discharge Plan Description Return Home Feels Safe in Current Environment Yes Been Physically Hurt or Threatened By a No Person in Current Environment Do you have thoughts of harming yourself None or others? Are you currently considering suicide? No Do you have a plan to hurt yourself or No Plan others? Do You Have Any Spiritual Beliefs That No May Affect Your HC Choices? Do You Have Any Cultural Practices That No May Affect Your HC Choices? Who Can We Speak to About Patient's Care Linh Olivo Identifying Code for Release of Patient declined Information Health Care Proxy/Next of Kin Linh Olivo Health Care Proxy Emergency Contact Name Linh Olivo Emergency Contact Advance Directives? Yes Requested Patient Bring Advanced Yes Directives DOS Power of Manufacturing Cost Estimator Yes Power of Manufacturing Cost Estimator Name Linh Olivo Power of Manufacturing Cost Estimator PAC Instructions Assistance for 24 hours post- op,Do not shave/clip surgical site,Durable medical equipment ,Medications to take/avoid, Nasal antibiotic,No ETOH/ petroleum product on skin DOS, NPO,Post-op transportation,Pre -surgical wash,Sensory aids, Sturdy shoes/comfortable clothes,Do not bring valuables and remove jewelry
--- NOTE | 2023-08-04 15:26 | PC.NURSE ---
Day shift: Paperwork signed and all questions answered. Left unit via WC at approx 1530. Spouse in room for the teachings. Pt has all personal belongings. No new MD scripts. Dressing remains CDI. Cleared by PT for discharge. Asymtomatic when standing this afternoon. BP meds held this AM. r/t low BP
== END 2023-08-04 15:28 | disposition home or self-care (01) ==
LOC: OR 06:38 → AC 06:40
PROVIDERS: Referring Provider Orthopaedic Surgery; Visit Provider Orthopaedic Surgery
PROC: (CPT 27130; principal; 2023-08-03 07:45)
DX: M16.11 Unilateral primary osteoarthritis, right hip (principal); D68.51 Activated protein C resistance; Z79.01 Long term (current) use of anticoagulants; Z86.718 Personal history of other venous thrombosis and embolism
CPT/HCPCS: 27130; 36415; 73502; 76000; 85014; 85018; 85610; 97110; 97116; 97162; 97165; 97530; 97533; C1776; C9290; J0171; J0690; J2704; J3010